=== PATIENT | female | born 1995 | race Caucasian/White ===

== ENCOUNTER 2017-09-06 14:30 | Outpatient (CLI) | payer OTHER ==
--- NOTE | 2017-09-06 17:24 | ULT ---
PELVIC ULTRASOUND: Technique: Transabdominal and endovaginal ultrasound of the pelvis. Indication: Left pelvic pain, left lower quadrant pain. FINDINGS: Uterus has a normal appearance. Uterine measurements were recorded at 7.5 x 4.5 x 2.7 cm. The endomet rial stripe appears in normal range measured at 5-7 mm. Both ovaries are identified. Color doppler with spectral analysis shows blood flow to both ovaries. N o free fluid is identified. IMPRESSION: Unremarkable pelvic ultrasound. POS: TIEN
== END 2017-09-06 14:31 | disposition home or self-care (01) ==
LOC: ULT 14:30
DX: R10.2 Pelvic and perineal pain (principal)
CPT/HCPCS: 76856

== ENCOUNTER 2018-10-26 23:30 | Inpatient (IN) | payer OTHER ==
[2018-10-26 23:56] VITALS: BMI 32.1
[2018-10-27 00:12] LABS: Amnisure Test RUPTURE DETECTED (No Rupture)
[2018-10-27 00:13] LABS: Amnisure Internal Control QC ACCEPTABLE (ACCEPTABLE)
[2018-10-27] MEDS ORDERED: Lidocaine 1% (PF) 30 ML VIAL SC PRN (00:21)
[2018-10-27] MEDS ORDERED: Diphenoxylate HCl/Atropine Tablet PO PRN (00:21)
[2018-10-27] MEDS ORDERED: Acetaminophen 500 MG TAB PO PRN (00:21)
[2018-10-27] MEDS ORDERED: NS / Oxytocin 40 units/1000ml 1,000 ML IV PRN (00:21)
[2018-10-27] MEDS ORDERED: HYDROcodone/Acetaminophen 5/325 mg Tablet PO PRN ×2 (00:21→09:42)
[2018-10-27] MEDS ORDERED: Promethazine HCl 25 MG/ML VIAL IM PRN ×2 (00:21→06:35)
[2018-10-27] MEDS ORDERED: Ondansetron PF 4 MG/2 ML Vial IVP PRN ×2 (00:21→06:35)
[2018-10-27] MEDS ORDERED: Ibuprofen 800 MG TAB PO PRN (00:21)
[2018-10-27] MEDS ORDERED: Butorphanol Tartrate 1 MG/ML VIAL SLOW IVP PRN (00:21)
[2018-10-27] MEDS ORDERED: Carboprost 250 MCG/ML AMP IM PRN (00:21)
[2018-10-27] MEDS ORDERED: Methylergonovine 0.2 MG/ML VIAL IM PRN (00:21)
--- NOTE | 2018-10-27 00:26 | PDOC.LDHP ---
Labor and Delivery H&P Chief complaint: loss of fluid HPI: 23 yo @ 38w1d by LMP c/w 8 wek CRL who presents with SROM in latent labor. GBS +. Had low lying placenta that resolved. Current gestational age (weeks): 38 Due date: 11/09/18 Dating criteria: last menstrual period Grav: 2 Para: 0 Current complications: none Abnormal US findings: No Past Medical History: Denies Current medications: pre-helga vitamins Previous surgical history: appendectomy, other (laparoscopy) Allergies/Adverse Reactions: Allergies Allergy/AdvReac Type Severity Reaction Status Date / Time No Known Allergies Allergy Verified 10/26/18 23:51 Social history: none - Physical Exam Abnormal vital signs: mild HTN noted on admission General: NAD Heart: RRR Lungs: nonlabored breathing Abdomen: gravid Extremeties: no edema FHT: category 1 (120s, mod harshil, +accels, no decels) [place] contractions every: q2 min per pt- irritability on monitor - Vaginal Exam cm dilated: 4 (cephalic per RN ) Effacement: 90% Station: -1 - OB Labs Blood type: O RH: positive Antibody Screen: negative HIV: negative RPR: negative HEPSAg: negative 1 hour GCT: negative GBS: positive Urine drug screen: negative Rubella: immune Additional Labs: panorama= negative , 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
[2018-10-27] MEDS ORDERED: Penicillin G Potassium 5 MILL.UNITS in Sodium Chloride 0.9% 100 ML IVPB SCH (00:30)
[2018-10-27] MEDS ORDERED: Lactated Ringer's 1,000 ML IV SCH (00:30)
[2018-10-27] MEDS ORDERED: NS w/ Oxytocin 10 units 500 ML IV SCH (00:30)
[2018-10-27 01:19] LABS: Hemoglobin 12.3 g/dL (12.0-16.0); Mean Corpuscular HGB CONC 33.8 g/dL (32.0-36.0); Mean Corpuscular Hemoglobin 30.3 pg (27.0-31.0); Mean Corpuscular Volume 89.6 fL (78.0-98.0); Mean Platelet Volume 9.5 fL (7.4-10.4); Platelet Count 159 thou/uL (130-400); RBC Distribution Width 11.5 % (11.5-14.5); Red Blood Cell (RBC) Count 4.07 mill/uL (4.20-5.40); White Blood Cell (WBC) Count 12.4 thou/uL (4.8-10.8)
[2018-10-27 01:42] LABS: Chloride 106 mmol/L (98-107); Potassium 3.9 mmol/L (3.5-5.1); Sodium 135 mmol/L (136-145)
[2018-10-27 01:43] LABS: ALT (SGPT) 17 U/L (8-55); AST (SGOT) 20 U/L (5-34); Albumin 3.6 g/dL (3.5-5.0); Alkaline Phosphatase 196 U/L (40-150); Anion Gap 14 mmol/L (10-20); BUN (Urea Nitrogen) 13 mg/dL (7.0-18.7); Bilirubin, Total 0.2 mg/dL (0.2-1.2); Calc. Creatinine Clearance 189 mL/min (70-130); Calcium 9.7 mg/dL (7.8-10.44); Carbon Dioxide 19 mmol/L (22-29); Estimated GFR-MDRD Greater than 90; Globulin 3.1 g/dL (2.4-3.5); Glucose 91 mg/dL (70-105); Protein, Total 6.7 g/dL (6.0-8.3)
[2018-10-27 02:01] LABS: HBSAg Index 0.32 S/CO (0-0.99); HIV (1/2) Antibody/Antigen Non-Reactive (NonReactive); HIV 1/2 INDEX 0.12 S/CO (<1.00); Hep B Surf Ag Non-Reactive S/CO (NonReactive)
[2018-10-27 02:34] LABS: Bilirubin Negative (Negative); Blood, Urine Small (Negative); Clarity CLEAR (Clear); Glucose, Urine (Dipstick) Negative (Negative); Leukocyte Small (Negative); Nitrite Negative (Negative); Protein, Urine (Dipstick) Negative (Neg-Trace); Urobilinogen 0.2 mg/dL (0.2-1.0)
[2018-10-27 02:36] LABS: Bacteria/HPF None Seen HPF (None Seen); Hyaline Casts/LPF 0-3 HYALINE CAST LPF (0-3 Hyaline); Pathc Cast-AUWi Flag 0.95 (0-2.49); Squamous Epithelial 0-3 HPF (0-3)
[2018-10-27] MEDS ORDERED: Butorphanol Tartrate 1 MG/ML VIAL ONE (03:20)
[2018-10-27] MEDS ORDERED: Lidocaine 1% (PF) 30 ML VIAL ONE (03:46)
[2018-10-27] MEDS ORDERED: NS / Oxytocin 40 units/1000ml 1,000 ML ONE (03:46)
[2018-10-27] MEDS ORDERED: Penicillin G 2.5 MILL.units 2.5 MILL.UNITS in Premix Bag 1 BAG IVPB SCH (05:00)
[2018-10-27 05:14] LABS: Syphilis Antibody Nonreactive (Nonreactive); Syphilis Antibody Index 0.11 S/CO (<1.00 Non-Reactive)
[2018-10-27] MEDS ORDERED: Fentanyl 4 mcg/Bup 0.1% Cadd 100 ML ONE (05:59)
[2018-10-27] MEDS ORDERED: diphenhydrAMINE 50 MG/ML VIAL IVP PRN (06:35)
[2018-10-27] MEDS ORDERED: Acetaminophen 325 MG TAB PO PRN (06:35)
[2018-10-27] MEDS ORDERED: Lactated Ringer's 500 ML IV PRN (06:35)
[2018-10-27] MEDS ORDERED: ePHEDrine/0.9% NaCl/PF SYRINGE 50 mg/10 ml SLOW IVP PRN (06:35)
[2018-10-27] MEDS ORDERED: Naloxone HCl 0.4 mg/ml Vial IVP PRN ×2 (06:35)
[2018-10-27] MEDS ORDERED: Eucerin (Mineral Oil/Petrolatum,White) 30 gm Jar TOP PRN (06:35)
[2018-10-27] MEDS ORDERED: Fentanyl 4 mcg/Bupivacaine 0.1% Cassette 100 ML EPIDURAL SCH (06:45)
[2018-10-27] MEDS ORDERED: Communication Order-Pharmacy FS SCH (06:45)
[2018-10-27] MEDS ORDERED: Methylergonovine 0.2 MG/ML VIAL ONE (09:08)
[2018-10-27] MEDS: Misoprostol 200 MCG TAB ONE ×2 (09:13→15:29)
--- NOTE | 2018-10-27 09:25 | PDOC.OPDEL ---
OB Operative/Delivery Note Delivery Dr/Surgeon: Thais Rodriguez DO Pre-Delivery Diagnosis: active labor Procedure/Post Delivery Dx: spontaneous vaginal delivery Weeks gestation: 38 Anesthesia: epidural - Findings A Sex: male - 1 min: 8 - 5 min: 9 - Additional Findings/Plan Placenta delivered: spontaneous Repaired Obstetrical Laceration: 2nd degree (and right labial laceration) Estimated blood loss: QBL 230 cc Compilations/Other Findings: in cephalic presentation. RITA position and left compound arm. Body cord. Normal appearing placenta. Uterine atony noted, pt given pitocin, methergine and cytotec with resolution. Post delivery plan: routine recovery
[2018-10-27] MEDS ORDERED: NS / Oxytocin 40 units/1000ml 1,000 ML IV SCH (09:42)
[2018-10-27] MEDS ORDERED: Benzocaine-Menthol 82.5 ML CAN TOP PRN (09:42)
[2018-10-27] MEDS ORDERED: Bisacodyl 10 MG SUPP PR PRN (09:42)
[2018-10-27] MEDS ORDERED: Milk Of Magnesia 30 ML UDCUP PO PRN (09:42)
[2018-10-27] MEDS ORDERED: Bupivacaine/Epinephrine 0.25% 30 ML VIAL ONE (11:11)
[2018-10-27] MEDS: Ferrous Sulfate 325 MG TAB PO SCH (15:29)
[2018-10-27] MEDS: Ibuprofen 800 MG TAB PO SCH ×2 (15:51→22:01)
[2018-10-27] MEDS: Docusate Calcium (SURFAK) 240 MG CAP PO SCH (22:01)
[2018-10-28] MEDS: Ibuprofen 800 MG TAB PO SCH ×3 (04:52→21:03)
[2018-10-28 07:41] LABS: Hemoglobin 11.8 g/dL (12.0-16.0); Mean Corpuscular HGB CONC 33.9 g/dL (32.0-36.0); Mean Corpuscular Hemoglobin 30.5 pg (27.0-31.0); Mean Corpuscular Volume 89.8 fL (78.0-98.0); Platelet Count 148 thou/uL (130-400); RBC Distribution Width 11.6 % (11.5-14.5); Red Blood Cell (RBC) Count 3.86 mill/uL (4.20-5.40); White Blood Cell (WBC) Count 11.6 thou/uL (4.8-10.8)
--- NOTE | 2018-10-28 08:25 | PDOC.PP ---
Post Progress Note Post Day #: 1 Subjective: No concerns. Doing well. Seeing LC today. Infant having some difficulty latching. Minimal pain and lochia. PO intake tolerated: yes Flatus: yes Ambulation: yes Vital Signs (12 hours) Temp Pulse Resp BP 10/28/18 04:50 98.2 F 89 20 120/66 10/28/18 00:00 98.2 F 92 18 115/66 Weight Weight 187 lb - Physical Examination General: NAD Cardiovascular: RRR Respiratory: non-labored breathing Abdominal: no distention, appropriately TTP Fundus firm & at: below umbilicus Extremities: negative homans (B) Neurological: no gross focal deficits Psychiatric: A&Ox3, normal affect Result Diagrams: 10/28/18 07:19 10/27/18 01:10 Additional Labs: Post Labs Blood Type O POSITIVE 10/27/18 01:10 Hep Bs Antigen Non-Reactive S/CO (NonReactive) 10/27/18 01:10 (1) Vaginal delivery Code(s): O80 - ENCOUNTER FOR FULL-TERM UNCOMPLICATED DELIVERY Status: Acute - Assessment/Plan PPD1 VSSAF Continue PP care. LC today. If latching and pediatrics approves, may d/c this evening. Otherwise, will hold until tomorrow.
[2018-10-28] MEDS: Docusate Calcium (SURFAK) 240 MG CAP PO SCH ×2 (09:17→21:03)
[2018-10-28] MEDS: Ferrous Sulfate 325 MG TAB PO SCH ×2 (09:17→13:57)
--- NOTE | 2018-10-29 04:48 | PDOC.PP ---
Post Progress Note Post Day #: 2 Subjective: Doing well PO intake tolerated: yes Flatus: yes Ambulation: yes Vital Signs (12 hours) Temp Pulse Resp BP Pulse Ox 10/28/18 20:05 97.8 F 82 18 144/83 H 99 Weight Weight 187 lb BPs overall wnl..isolated and sporadic SBP of 140s, with normal diastolics - Physical Examination General: NAD Cardiovascular: no m/r/g, RRR Respiratory: clear to auscultation bilaterally, non-labored breathing Abdominal: + bowel sounds, lochia, no distention, appropriately TTP Extremities: negative homans (B) Neurological: no gross focal deficits Psychiatric: A&Ox3, normal affect Result Diagrams: 10/28/18 07:19 10/27/18 01:10 Additional Labs: Post Labs Blood Type O POSITIVE 10/27/18 01:10 Hep Bs Antigen Non-Reactive S/CO (NonReactive) 10/27/18 01:10 (1) Vaginal delivery Code(s): O80 - ENCOUNTER FOR FULL-TERM UNCOMPLICATED DELIVERY Status: Acute - Assessment/Plan PPD2 doing well...isolated systolic BP reads of 140s...not high enough for meds at this time. OK for DC to home with recheck BPs in 2 weeks.
[2018-10-29] MEDS: Ibuprofen 800 MG TAB PO SCH ×2 (06:10→13:30)
[2018-10-29] MEDS: Ferrous Sulfate 325 MG TAB PO SCH (08:09)
[2018-10-29] MEDS: Docusate Calcium (SURFAK) 240 MG CAP PO SCH (08:09)
[2018-10-29 08:10] VITALS: BP 135/82; TEMP 98.1
== END 2018-10-29 13:50 | disposition home or self-care (01) | DRG 807 ==
LOC: L&D/OP 23:30 → L&D 10-27 00:41 → 3SW 10-27 13:07
PROVIDERS: ADMIT Obstetrics & Gynecology; ATTEND Obstetrics & Gynecology
PROC: 10E0XZZ Delivery of Products of Conception, External Approach (ICD-10-PCS; principal; 2018-10-27)
DX: O99.824 Streptococcus B carrier state complicating childbirth (principal); Z37.0 Single live birth; O16.4 Unspecified maternal hypertension, complicating childbirth; O70.1 Second degree perineal laceration during delivery; Z3A.38 38 weeks gestation of pregnancy; Z90.49 Acquired absence of other specified parts of digestive tract; O69.89X0 Labor and delivery complicated by other cord complications, not applicable or unspecified; O62.2 Other uterine inertia
CPT/HCPCS: 36415; 51702; 80053; 81001; 84112; 85027; 86780; 86850; 86900; 86901; 87340; 87389; J0595; J2001; J2210; J2405; J2540; J2590; J3490

== ENCOUNTER 2019-12-05 17:27 | Emergency (ER) | payer OTHER ==
[2019-12-06 16:19] LABS: SARS-CoV-2 MS2 Positive; SARS-CoV-2 N Gene Negative; SARS-CoV-2 S Gene Negative; SARS-CoV-2 orf1ab Negative
== END 2019-12-05 17:58 | disposition home or self-care (01) ==
LOC: ERS 17:27
DX: Z20.828 Contact with and (suspected) exposure to other viral communicable diseases (principal)
CPT/HCPCS: 87635; 99283; U0003

== ENCOUNTER 2023-12-19 12:49 | Emergency (ER) | payer SELFPAY ==
[~2023-12-19 12:49] MED LIST: Iopamidol-370 76% 500 ML MDV (1 ML CHARGE) ONE
[2023-12-19] MEDS ORDERED: fentaNYL 50 mcg/mL 1 mL Vial ONE (13:20)
[2023-12-19] MEDS ORDERED: Ketorolac Tromethamine 30 MG (1 mL) VIAL ONE (13:20)
[2023-12-19] MEDS ORDERED: Ondansetron PF 4 MG/2 ML Vial ONE (13:20)
[2023-12-19] MEDS ORDERED: LORazepam 2 MG/ML SYR.(CARPUJECT) ONE (13:21)
[2023-12-19 14:09] LABS: #Basophils Less than 0.03 10x3/uL (0.0-0.2); %Basophils 0.2 % (0.0-1.0); %Eosinophils 0.7 % (0.0-10.0); %Lymphocytes 26.6 % (21.0-51.0); %Monocytes 10.1 % (0.0-10.0); %Neutrophils 62.2 % (42.0-75.0); Hematocrit 37.5 % (36.0-47.0); Hemoglobin 13.5 g/dL (12.0-16.0); Mean Corpuscular Hemoglobin 30.3 pg (27.0-31.0); Mean Corpuscular Volume 84.3 fL (78.0-98.0); Mean Platelet Volume 10.6 fL (7.4-10.4); Platelet Count 296 10x3/uL (130-400); RBC Distribution Width 11.8 % (11.5-14.5); Red Blood Cell (RBC) Count 4.45 mill/uL (4.20-5.40)
[2023-12-19 14:30] LABS: ALT (SGPT) Less than 5 U/L (8-55); AST (SGOT) 16 U/L (5-34); Albumin 4.6 g/dL (3.5-5.0); Alkaline Phosphatase 55 U/L (40-110); Anion Gap 18 mmol/L (10-20); BUN (Urea Nitrogen) 10 mg/dL (7.0-18.7); Bilirubin, Total 0.5 mg/dL (0.2-1.2); CK (CPK) 140 U/L (29-168); Calc. Creatinine Clearance 0 mL/min (70-130); Calcium 10.5 mg/dL (7.8-10.44); Carbon Dioxide 16 mmol/L (22-29); Chloride 110 mmol/L (98-107); Estimated GFR 77; Glucose 134 mg/dL (70-105); Lipase 33 U/L (8-78); Potassium 3.6 mmol/L (3.5-5.1); Protein, Total 7.6 g/dL (6.0-8.3); Sodium 140 mmol/L (136-145)
[2023-12-19 14:33] LABS: BHCG - Serum Negative (NEGATIVE); Pregs Control Background? CLEAR/WHITE (CLR/WHITE); Pregs Control Bar Appear? YES (CONTROL BAR)
[2023-12-19 15:07] LABS: Bacteria/HPF None Seen HPF (None Seen); Bilirubin Negative (Negative); Blood, Urine Negative (Negative); CAUTI Indications for Culture Pelvic or flank pain; Clarity Clear (Clear); Glucose, Urine (Dipstick) Normal (Negative); Ketone, Urine Negative (Negative); Leukocyte Negative Leu/uL (Negative); Nitrite Negative (Negative); Protein, Urine (Dipstick) Negative (Neg-Trace); RBC/HPF 0-3 HPF (0-3); Specific Gravity, Urine 1.007 (1.002-1.036); Squamous Epithelial None Seen HPF (0-3); Urobilinogen Normal mg/dL (Less than 2); WBC/HPF 0-3 HPF (0-3); pH, Urine 7.5 (5.0-9.0)
[2023-12-19 15:23] LABS: Urine Culture Reflex No No
== END 2023-12-19 17:54 | disposition home or self-care (01) ==
LOC: ERS 12:49
DX: R10.9 Unspecified abdominal pain (principal)
CPT/HCPCS: 36415; 74177; 80053; 81001; 82550; 83690; 84703; 85025; 96374; 96375; J1885; J2060; J2405; J3010; Q9967